=== PATIENT | male | born 1975 | race Caucasian/White ===

== ENCOUNTER 2023-11-19 01:18 | Emergency (ER) | payer SELFPAY ==
[2023-11-19 01:20] VITALS: BP 127/85; PULSE 72; RESP 16; TEMP 36.8; O2SAT 100; BMI 27.1
--- NOTE | 2023-11-19 01:31 | CT_ITS ---
PROCEDURE INFORMATION: Exam: CT Abdomen And Pelvis With Contrast Exam date and time: 11/19/2023 2:11 AM Age: 48 years old Clinical indication: Abdominal pain; Additional info: Chronic abd pain, weight loss, diarrhea TECHNIQUE: Imaging protocol: Computed tomography of the abdomen and pelvis with contrast. Radiation optimization: All CT scans at this facility use at least one of these dose optimization techniques: automated exposure control; mA and/or kV adjustment per patient size (includes targeted exams where dose is matched to clinical indication); or iterative reconstruction. Contrast material: ISOVUE; Contrast volume: 75 ml; Contrast route: IV; COMPARISON: ABDPELW CT abdomen pelvis w con 12/16/2017 10:20 PM FINDINGS: Liver: Mild fatty liver infiltration. No mass. Gallbladder and biliary ducts: Normal. No calcified stones. No ductal dilation. Pancreas: Normal. No ductal dilation. Spleen: Normal. No splenomegaly. Adrenal glands: Normal. No mass. Kidneys and ureters: 1.6 cm left upper pole simple cyst. Otherwise unremarkable kidneys. Stomach and bowel: Unremarkable. No obstruction. No mucosal thickening. Appendix: No evidence of appendicitis. Intraperitoneal space: Unremarkable. No free air. No significant fluid collection. Vasculature: Unremarkable. No abdominal aortic aneurysm. Lymph nodes: Unremarkable. No enlarged lymph nodes. Urinary bladder: Unremarkable as visualized. Reproductive: Unremarkable as visualized. Bones/joints: Unremarkable. No acute fracture. Soft tissues: Unremarkable. IMPRESSION: 1. No acute findings identified. 2. Mild fatty liver infiltration.
[2023-11-19] MEDS: KETOROLAC 30MG/ML VIAL 30 MG IV (01:38)
[2023-11-19] MEDS: ONDANSETRON 4MG/2ML VIAL 4 MG IV (01:38)
[2023-11-19] MEDS: ACETAMINOPHEN 500MG TAB 1000 MG PO (01:38)
[2023-11-19] MEDS: 0.9 % SODIUM CHLORIDE 1000ML 1,000 ML 999 ML IV (01:38)
[2023-11-19 01:51] LABS: Basophils # 0.1 K/mm3 (0-0.2); Basophils % 0.8 % (0.1-2.0); Chloride 106 mmol/L (98-107); Eosinophils # 0.1 K/mm3 (0.0-0.4); Eosinophils % 1.2 % (0.1-12.0); Hematocrit 49.5 % (42.0-52.0); Hemoglobin 15.8 g/dL (14.1-18.0); Lymphocytes % 27.6 % (10-50); Mean Corpuscular Hemoglobin 30.9 pg (27.0-31.2); Mean Corpuscular Volume 96.7 fl (80-94); Mean Platelet Volume 7.5 fl (7.4-10.4); Monocytes # 0.8 K/mm3 (0.1-1.0); Neutrophils % 63.4 % (37.0-80.0); Platelet Count 340 K/mm3 (142-424); Red Blood Count 5.12 M/mm3 (4.60-6.20); Red Cell Distribution Width 13.4 % (11.5-17.5); Sodium 139 mmol/L (136-145)
[2023-11-19 01:52] LABS: Potassium 4.4 mmoL/L (3.5-5.1)
[2023-11-19 01:54] LABS: Alanine Aminotransferase 35 U/L (12-78); Albumin/Globulin Ratio 1.5 (1.1-1.8); Alkaline Phosphatase 77 U/L (38-126); Anion Gap 10.4 mEq/L (5-15); Aspartate Amino Transferase 37 U/L (17-59); Bilirubin,Total 0.6 mg/dl (0.2-1.3); Blood Urea Nitrogen 19 mg/dl (9-20); Carbon Dioxide 27 mmol/L (22.0-30.0); Creatinine Clearance Estimated 144 mL/min (50-200); Estimated Glomerular Filt Rate 90 ml/min (>60); GFR (African American) 109 ML/MIN (>60); Globulin 3.3 g/dL (1.3-3.2); Total Protein,Serum 8.3 g/dl (6.3-8.2)
[2023-11-19 01:55] LABS: Calcium 9.9 mg/dl (8.4-10.2); Glucose 98 mg/dl (74-100); Lipase 87 U/L (23-300); Magnesium 2.1 mg/dl (1.6-2.3)
[2023-11-19 02:00] LABS: C-Reactive Protein 1.8 mg/L (0-4)
--- NOTE | 2023-11-19 02:10 | HMH.EDGENADL ---
Discharge Plan Disposition Patient Disposition: Home, Self-Care Prescriptions Prescriptions: New ondansetron HCl 4 mg tablet 4 mg PO Q8H PRN (Reason: nausea and vomiting) 5 Days Qty: 30 0RF No Action cyclobenzaprine 10 MG tablet 10 mg PO TID Qty: 4 0RF Referrals Follow up/Referrals: Gibran Elizondo MD [Primary Care Provider] - See instructions Activity Restrictions/Add. Instructions Additional Instructions/Restrictions: Recommend establishing care with a primary care provider. Please return to the emergency department if you develop any new or worsening symptoms or become concerned for your health. Clinical Impressions Clinical Impression: Abdominal pain, Diarrhea Instructions Patient Instructions: DI for Acute Abdominal Pain Print Language Print Language: Faroese Discharge ED Provider: Higinio Reid Adult HPI General Chief complaint: Abdominal Pain Stated complaint: abd pain, diarrhea, not eating, low energy Time Seen by Provider: 11/19/23 01:31 Mode of Arrival: Ambulatory Source of Information: Patient Limitations: No Limitations Description of Symptoms (Recalled from ER Triage Doc. by RN): Pt presents with ongoing abdominal pain associated with nausea and dark stools. Pt states does not go to a doctor and it's been going on for a really long time. Spouse states he has lost weight and it has been bad for the past 2-3 months. Pt has no known medical issues. History of Present Illness HPI narrative: 48-year-old male with no reported past medical history, does not see doctors presents with several months of chronic abdominal pain, diarrhea and weight loss. He reports that food goes right through him. He reports no blood in his stool. Denies any fevers. Reports nausea but no vomiting. He reports that he has been losing some weight as well. Related Data Previous Rx's ?Medication ?Instructions ?Recorded cyclobenzaprine 10 mg tablet 10 mg PO TID #4 tabs 11/18/18 ondansetron HCl 4 mg tablet 4 mg PO Q8H PRN nausea and 11/19/23 vomiting 5 days #30 tabs Allergies Allergy/AdvReac Type Severity Reaction Status Date / Time No Known Allergies Allergy Verified 12/16/17 21:45 [facility] Disclaimer: The information contained in this section may have been updated after the patient was seen, as this information can be updated by other users. Social History Smoking Status: Current every day smoker tobacco type: cigarettes packs per day: 1 second hand exposure: No alcohol intake: never current occupational status: employed Travel in the last 8 weeks: None household members: significant other housing: house current occupational exposures/hazards: No ROS Obtained: Yes All systems reviewed & no additional complaints except as documented Physical Exam General General appearance: alert and in no apparent distress Head Head exam: atraumatic and normocephalic Eye Eye exam: Present normal appearance, PERRL and EOMI ENT ENT exam: Present normal oropharynx and normal external ear exam Neck Neck exam: Present normal inspection and full ROM Chest Chest inspection: Present normal inspection and symmetric chest wall rise; Absent tenderness Respiratory Respiratory exam: Present normal lung sounds bilaterally; Absent respiratory distress Cardiovascular Cardiovascular exam: Present regular rate and normal rhythm Abdominal Exam Abdominal exam: Present soft; Absent distention, tenderness or guarding Extremities Exam Extremities exam: Present normal inspection; Absent edema or joint swelling Back Exam Back exam: Present normal inspection; Absent tenderness Neurological Exam Neurological exam: Present alert and oriented X3; Absent motor sensory deficit Psychiatric Psychiatric exam: Present normal affect and normal mood Skin Skin exam: Present warm, dry and normal color Lymphatic Lymphatic Findings: no adenopathy Medical Decision Making Medical Records Medical records reviewed: Yes I reviewed the patient's medical records. Eitan Inquiry Pt receiving controlled substance: No Eitan was queried for this patient: No Vital Signs: 11/19/23 01:20 Temperature 98.2 F Temperature Source Oral Pulse Rate [Left] 72 Respiratory Rate 16 Blood Pressure [Right Arm] 127/85 Blood Pressure Mean [Right Arm] 99 Blood Pressure Source [Right Arm] Automatic Cuff Blood Pressure Position [Right Arm] Sitting 02 Sat by Pulse Oximetry 100 Oxygen Delivery Method Room Air Lab Data Lab results reviewed: Yes I reviewed the patient's lab results. Lab Results 11/19/23 01:30: WBC 11.0 H, RBC 5.12, Hgb 15.8, Hct 49.5, MCV 96.7 H, MCH 30.9, MCHC 32.0, RDW 13.4, Plt Count 340, MPV 7.5, Neut % (Auto) 63.4, Lymph % (Auto) 27.6, [place] % (Auto) 7.0, Eos % (Auto) 1.2, Baso % (Auto) 0.8, Neut # (Auto) 7.0, Lymph # (Auto) 3.0, [place] # (Auto) 0.8, Eos # (Auto) 0.1, Baso # (Auto) 0.1, ESR 5, Sodium 139, Potassium 4.4, Chloride 106, Carbon Dioxide 27, Anion Gap 10.4, BUN 19, Creatinine 0.90, Estimated Creat Clear 144, Estimated GFR 90, Est GFR ( Amer) 109, Glucose 98, Calcium 9.9, Magnesium 2.1, Total Bilirubin 0.6, AST 37, ALT 35, Alkaline Phosphatase 77, C-Reactive Protein 1.8, Total Protein 8.3 H, Albumin 5.0, Globulin 3.3 H, Albumin/Globulin Ratio 1.5, Lipase 87 11/19/23 01:30 11/19/23 01:30 Orders (Tests/Meds): ED MEDICATIONS Generic Name Dose Route Start Last Admin Trade Name Freq PRN Reason Stop Dose Admin Sodium Chloride 10 ml 11/19/23 02:25 11/19/23 02:26 Sodium Chloride 0.9% 10ml Syr (Rad Only) IV 12/19/23 02:24 10 ml NEEDED PRN Administration Maintain IV Site Discontinued Medications Generic Name Dose Route Start Last Admin Trade Name Freq PRN Reason Stop Dose Admin Acetaminophen 1,000 mg 11/19/23 01:31 11/19/23 01:38 Acetaminophen 500mg Tab PO 11/19/23 01:32 1,000 mg ONCE ONE Administration Sodium Chloride 1,000 mls @ 999 mls/hr 11/19/23 01:45 11/19/23 01:38 Sod Chlor 0.9% 1000ml Bag IV 11/19/23 02:45 999 mls/hr .Q1H1M QUINCY Administration Iopamidol 75 ml 11/19/23 02:25 11/19/23 02:26 Iopamidol-370 (76%);100ml Bottle IV 11/19/23 02:26 75 ml ONCE ONE Administration Ketorolac Tromethamine 30 mg 11/19/23 01:31 11/19/23 01:38 Ketorolac 30mg/Ml Vial IV 11/19/23 01:32 30 mg ONCE ONE Administration Ondansetron HCl 4 mg 11/19/23 01:31 11/19/23 01:38 Ondansetron 4mg/2ml Vial IV 11/19/23 01:32 4 mg ONCE ONE Administration ORDERS Category Date Time Status CT abdomen pelvis w con Stat Cat Scan 11/19/23 01:31 Completed CBC w/Auto Diff [Complete Blood Count Auto Diff] Stat Lab 11/19/23 01:30 Completed CMP [Comprehensive Metabolic Panel] Stat Lab 11/19/23 01:30 Completed CRP [C-Reactive Protein] Stat Lab 11/19/23 01:30 Completed Diarrhea 23 Panel, PCR Stat Lab 11/19/23 01:32 Ordered ESR [Erythrocyte Sedimentation Rate] Stat Lab 11/19/23 01:30 Completed Lipase Stat Lab 11/19/23 01:30 Completed Magnesium Stat Lab 11/19/23 01:30 Completed Medical Decision Narrative: 48-year-old male with no reported past medical history, does not see doctors presents with 2 to 3 months of chronic abdominal pain, nausea, diarrhea, weight loss. History was obtained via interactive discussion with patient, family, chart review. On arrival, patient is [afebrile, hemodynamically stable, satting appropriately, alert, oriented x4, GCS 15], moving all extremities spontaneously. Full physical exam performed and significant for no significant physical exam abnormalities. Differential includes but is not limited to malignancy, pancreatitis, bacterial/viral gastroenteritis, functional abdominal pain, celiac, IBS, IBD. Patient was given 1 L IV fluid bolus, Tylenol, Toradol, Zofran for symptomatic management and correction of underlying abnormalities. Workup initiated including CBC CMP ESR CRP diarrhea panel CT abdomen pelvis IV contrast mag lipase. On re-evaluation, patient [remains afebrile, HD stable.] Reports symptomatic improvement Laboratory workup independently interpreted by me and significant for minimal leukocytosis, otherwise benign labs with negative lipase, no elevation in inflammatory markers, normal electrolytes. Imaging independently interpreted by me and significant for no evidence of malignancy obstruction or other abnormalities. See radiology read for full review of final results. Interactive discussion was had with patient regarding his presentation and workup. His symptoms may represent celiac, IBS IBD or some other GI pathology. He was encouraged to establish care with PCP for further workup. I also discussed with him the benefits of an elimination diet to see if perhaps dairy or gluten or some other food stuff was contributing to his symptoms. Patient was discharged with prescription for Zofran. He was given an outpatient order form for a diarrhea panel as he was unable to provide us with a sample in the ER. Procedures Risk/Benefits of Procedure(s) Were Explained: Yes Critical Care Critical Care Time Critical Care Time: No
[2023-11-19 02:17] LABS: Erythrocyte Sedimentation Rate 5 mm/hr (0-15)
[2023-11-19] MEDS: IOPAMIDOL-370 (76%);100ML BOTTLE 75 ML IV (02:26)
[2023-11-19] MEDS: SODIUM CHLORIDE 0.9% 10ML SYR (RAD ONLY) 10 ML IV (02:26)
[2023-11-19 03:04] VITALS: BP 119/82; PULSE 59; RESP 18; TEMP 36.8; O2SAT 98
== END 2023-11-19 03:07 | disposition home or self-care (01) ==
PROVIDERS: Emergency Provider Emergency Medicine; PCP Family Medicine
DX: R10.9 Unspecified abdominal pain (principal); R19.7 Diarrhea, unspecified; R63.4 Abnormal weight loss; G89.29 Other chronic pain; R11.0 Nausea; F17.210 Nicotine dependence, cigarettes, uncomplicated
CPT/HCPCS: 74177; 80053; 83690; 83735; 85025; 85651; 86140; 96361; 96374; 96375; 99285; J1885; J2405; J7030; Q9967

== ENCOUNTER 2023-11-22 22:56 | Emergency (ER) | payer SELFPAY ==
[2023-11-22 23:08] VITALS: BP 129/100; PULSE 126; RESP 16; TEMP 36.8; O2SAT 98; BMI 23.1
[2023-11-22] MEDS: LACTATED RINGERS 1000ML 1,000 ML 999 ML IV (23:19)
[2023-11-22] MEDS: KETOROLAC 30MG/ML VIAL 15 MG IV (23:19)
[2023-11-22] MEDS: DICYCLOMINE 10MG CAPSULE 20 MG PO (23:20)
[2023-11-22] MEDS: ONDANSETRON 4MG ODT 4 MG SL (23:20)
[2023-11-22 23:37] LABS: Adenovirus F 40/41, stool Not Detected (NotDetected); Astrovirus Not Detected (NotDetected); Campylobacter Not Detected (NotDetected); Clostridium Difficile A/B, PCR Not Detected (NotDetected); Cryptosporidium Not Detected (NotDetected); Cyclospora Cayetanesis Not Detected (NotDetected); Entamoeba histolytica Not Detected (NotDetected); Enteroaggregative E coli Not Detected (NotDetected); Enteropathogenic E coli Not Detected (NotDetected); Enterotoxigenic E coli Not Detected (NotDetected); Giardia lamblia Not Detected (NotDetected); Norovirus Not Detected (NotDetected); Plesimonas Shigalloides, PCR Not Detected (NotDetected); Rotavirus A Not Detected (NotDetected); Salmonella, PCR Not Detected (NotDetected); Sapovirus Not Detected (NotDetected); Shiga-like toxin E coli Not Detected (NotDetected); Shigella Enterovasive E coli Not Detected (NotDetected); Vibrio Cholerae Not Detected (NotDetected); Vibrio, PCR Not Detected (NotDetected); Yersinia Entercolitica, PCR Not Detected (NotDetected)
[2023-11-22 23:38] LABS: Albumin Level 4.7 g/dl (3.5-5.0); Chloride 107 mmol/L (98-107); Sodium 137 mmol/L (136-145)
[2023-11-22 23:40] LABS: Basophils # 0.1 K/mm3 (0-0.2); Basophils % 0.7 % (0.1-2.0); Eosinophils # 0.1 K/mm3 (0.0-0.4); Eosinophils % 1.1 % (0.1-12.0); Hematocrit 49.7 % (42.0-52.0); Lymphocytes % 18.5 % (10-50); Mean Corpuscular HGB Conc 32.2 g/dL (31.8-35.4); Mean Corpuscular Hemoglobin 31.1 pg (27.0-31.2); Mean Corpuscular Volume 96.7 fl (80-94); Mean Platelet Volume 7.5 fl (7.4-10.4); Monocytes # 0.8 K/mm3 (0.1-1.0); Monocytes % 7.6 % (1.7-9.3); Neutrophils # 7.6 K/mm3 (1.8-7.8); Neutrophils % 72.2 % (37.0-80.0); Platelet Count 309 K/mm3 (142-424); Red Blood Count 5.14 M/mm3 (4.60-6.20); Red Cell Distribution Width 13.3 % (11.5-17.5); White Blood Count 10.5 K/mm3 (4.8-10.8)
[2023-11-22 23:41] LABS: Alanine Aminotransferase 36 U/L (12-78); Albumin/Globulin Ratio 1.5 (1.1-1.8); Alkaline Phosphatase 65 U/L (38-126); Aspartate Amino Transferase 34 U/L (17-59); Bilirubin,Total 0.6 mg/dl (0.2-1.3); Blood Urea Nitrogen 18 mg/dl (9-20); Calcium 9.4 mg/dl (8.4-10.2); Carbon Dioxide 26 mmol/L (22.0-30.0); Creatinine Clearance Estimated 134 mL/min (50-200); Estimated Glomerular Filt Rate 103 ml/min (>60); GFR (African American) 125 ML/MIN (>60); Globulin 3.2 g/dL (1.3-3.2); Glucose 131 mg/dl (74-100); Total Protein,Serum 7.9 g/dl (6.3-8.2)
--- NOTE | 2023-11-22 23:42 | HMH.EDGENADL ---
Discharge Plan Disposition Patient Disposition: Home, Self-Care Condition: Good Prescriptions Prescriptions: New dicyclomine 10 mg capsule 10 mg PO BID PRN (Reason: abdominal cramping) Qty: 10 0RF No Action cyclobenzaprine 10 MG tablet 10 mg PO TID Qty: 4 0RF ondansetron HCl 4 mg tablet 4 mg PO Q8H PRN (Reason: nausea and vomiting) 5 Days Qty: 30 0RF Referrals Follow up/Referrals: Rhett Noriega MD [Physician] - See instructions (Months of persistent diarrhea, reassuring ED workups) Gibran Elizondo MD [Primary Care Provider] - See instructions Activity Restrictions/Add. Instructions Additional Instructions/Restrictions: You were evaluated in the ER and are appropriate for discharge at this time. Call the GI office and make an appointment with them to be evaluated for other possible intestinal problems. central supply manager the prescription for ondansetron that was recently prescribed to you. This helps with nausea. Also parts picker and take the prescribed dicyclomine if needed for abdominal cramping. Drink plenty of water. Follow-up with your primary care doctor in a few days. Return to the ER with new, worsening, or otherwise concerning symptoms. Clinical Impressions Clinical Impression: Abdominal cramping, Nausea, vomiting, and diarrhea Instructions Patient Instructions: DI for Diarrhea and Traveler's Diarrhea -- Adult, DI for Diarrhea and Traveler's Diarrhea -- Child, DI for Nausea -- Adult, DI for Nausea -- Child Print Language Print Language: Faroese Discharge ED Provider: Karla Bowden Adult HPI General Chief complaint: Nausea/Vomiting/Diarrhea Stated complaint: abd pain V/D Time Seen by Provider: 11/22/23 23:00 Mode of Arrival: Family Vehicle Source of Information: Patient Limitations: No Limitations Description of Symptoms (Recalled from ER Triage Doc. by RN): 48 yo male presents with continue n/v/d. was recently unable to provide a stool sample when he was in here before. History of Present Illness HPI narrative: 48-year-old male presents to the ER with similar complaints to those he had 3 days ago when he presented with abdominal pain, nausea, vomiting, diarrhea. Patient reports he was unable to provide a stool sample when he was here previously but was discharged. He states at that time he had not had vomiting, but in the last 24 hours started having nonbloody, nonbilious emesis. Patient reports continuing to have multiple liquid bowel movements per day. He states Pepto is the only thing that helps relieve the cramping, his diarrhea is dark in color but not tarry. He denies fevers, chest pain, shortness of breath. Patient reports the diarrhea problem has been ongoing for multiple months. He states he has not followed up with his primary care doctor, GI, or picked up the Zofran that was prescribed at his previous visit 3 days ago. He has diffuse lower abdominal pain that he describes as cramping. No radiation. ROS otherwise negative. Patient states his symptoms are stable and unchanged from his visit 3 days ago aside from a few episodes of vomiting today. Related Data Previous Rx's ?Medication ?Instructions ?Recorded cyclobenzaprine 10 mg tablet 10 mg PO TID #4 tabs 11/18/18 ondansetron HCl 4 mg tablet 4 mg PO Q8H PRN nausea and 11/19/23 vomiting 5 days #30 tabs dicyclomine 10 mg capsule 10 mg PO BID PRN abdominal 11/23/23 cramping #10 caps Allergies Allergy/AdvReac Type Severity Reaction Status Date / Time No Known Allergies Allergy Verified 12/16/17 21:45 [facility] Disclaimer: The information contained in this section may have been updated after the patient was seen, as this information can be updated by other users. Social History Smoking Status: Unknown if ever smoked second hand exposure: No alcohol intake: never current occupational status: employed Travel in the last 8 weeks: None household members: significant other housing: house current occupational exposures/hazards: No ROS Obtained: Yes All systems reviewed & no additional complaints except as documented Positive ROS per HPI Physical Exam General General appearance: alert and in no apparent distress Head Head exam: atraumatic and normocephalic Eye Eye exam: Present PERRL and EOMI ENT ENT exam: Present mucous membranes moist Neck Neck exam: Present normal inspection and full ROM Chest Chest inspection: Present symmetric chest wall rise Respiratory Respiratory exam: Present normal lung sounds bilaterally; Absent respiratory distress, wheezes or stridor Cardiovascular Cardiovascular exam: Present regular rate (Tachycardia present on arrival was absent on exam) and normal rhythm Abdominal Exam Abdominal exam: Present soft, tenderness (Mild to moderate diffuse lower abdominal tenderness) and normal bowel sounds; Absent distention, guarding, rebound or rigidity Extremities Exam Extremities exam: Present full ROM; Absent edema Neurological Exam Neurological exam: Present alert and oriented X3; Absent motor sensory deficit Psychiatric Psychiatric exam: Present normal affect and normal mood Skin Skin exam: Present warm and dry Medical Decision Making Medical Records Medical records reviewed: Yes I reviewed the patient's medical records. MR Comment: ER visit from 11/19/2023 was reviewed, personally reviewed CT imaging radiology read which did not demonstrate acute intra-abdominal pathology. Labs at that time were unremarkable, nonactionable Eitan Inquiry Pt receiving controlled substance: No Vital Signs: 11/22/23 23:08 11/23/23 00:31 11/23/23 02:23 Temperature 98.3 F 98.1 F Temperature Source Oral Oral Pulse Rate 53 L 78 Pulse Rate [Right Brachial] 126 H Respiratory Rate 16 18 Blood Pressure 142/111 H 154/89 H Blood Pressure [Right Arm] 129/100 H Blood Pressure Mean [Right Arm] 109 02 Sat by Pulse Oximetry 98 98 Oxygen Delivery Method Room Air Room Air Lab Data Lab Results 11/22/23 23:07: SARS-CoV-2 (PCR) Not detected, Influenza A Untype (PCR) Not detected, Influenza Type B (PCR) Not detected 11/22/23 23:10: WBC 10.5, RBC 5.14, Hgb 16.0, Hct 49.7, MCV 96.7 H, MCH 31.1, MCHC 32.2, RDW 13.3, Plt Count 309, MPV 7.5, Neut % (Auto) 72.2, Lymph % (Auto) 18.5, [place] % (Auto) 7.6, Eos % (Auto) 1.1, Baso % (Auto) 0.7, Neut # (Auto) 7.6, Lymph # (Auto) 2.0, [place] # (Auto) 0.8, Eos # (Auto) 0.1, Baso # (Auto) 0.1, PT 11.1, INR 0.99, Sodium 137, Potassium 4.0, Chloride 107, Carbon Dioxide 26, Anion Gap 8.0, BUN 18, Creatinine 0.80, Estimated Creat Clear 134, Estimated GFR 103, Est GFR ( Amer) 125, Glucose 131 H, Calcium 9.4, Total Bilirubin 0.6, AST 34, ALT 36, Alkaline Phosphatase 65, Total Protein 7.9, Albumin 4.7, Globulin 3.2, Albumin/Globulin Ratio 1.5 11/22/23 23:33: Stool Occult Blood Negative, Stl Aeromonas (PCR) Not detected, Stl C. cayetanensis PCR Not detected, Stool Rotavirus (PCR) Not detected, Stl Adenov F 40/41 PCR Not detected, Stool Astrovirus (PCR) Not detected, Stool Campylobacter PCR Not detected, Stl C.difficile Tox PCR Not detected, Stool Cryptosporidium PCR Not detected, Stl E.coli Shiga Tox PCR Not detected, Stool E coli O157 PCR Not detected, Stl Enterotoxigenic E PCR Not detected, Stool EPEC (PCR) Not detected, Stool EAEC (PCR) Not detected, Stl E. histolytica PCR Not detected, Stool Giardia Lamblia PCR Not detected, Stool Salmonella PCR Not detected, Stool Sapovirus (PCR) Not detected, Stl P. shigelloides PCR Not detected, Stl Shigella/EIEC PCR Not detected, St Y.enterocolitica PCR Not detected, Stool Vibrio (PCR) Not detected, Stl Vibrio cholerae PCR Not detected, Stl Norovirus GI/GII PCR Not detected 11/22/23 23:10 11/22/23 23:10 Orders (Tests/Meds): ED MEDICATIONS Discontinued Medications Generic Name Dose Route Start Last Admin Trade Name Freq PRN Reason Stop Dose Admin Dicyclomine HCl 20 mg 11/22/23 23:11 11/22/23 23:20 Dicyclomine 10mg Capsule PO 11/22/23 23:12 20 mg ONCE ONE Administration Lactated Ringer's 1,000 mls @ 999 mls/hr 11/22/23 23:11 11/22/23 23:19 Lactated Ringer's 1000 Ml Bag IV 11/23/23 00:11 999 mls/hr .Q1H1M ONE Administration Ketorolac Tromethamine 15 mg 11/22/23 23:11 11/22/23 23:19 Ketorolac 30mg/Ml Vial IV 11/22/23 23:12 15 mg ONCE ONE Administration Ondansetron HCl 4 mg 11/22/23 23:11 11/22/23 23:20 Ondansetron 4mg Odt SL 11/22/23 23:12 4 mg ONCE ONE Administration ORDERS Category Date Time Status CBC w/Auto Diff [Complete Blood Count Auto Diff] Stat Lab 11/22/23 23:10 Completed CMP [Comprehensive Metabolic Panel] Stat Lab 11/22/23 23:10 Completed Diarrhea 23 Panel, PCR Stat Lab 11/22/23 23:33 Completed Occult Blood,Stool Stat Lab 11/22/23 23:33 Completed PT INR [Prothrombin Time INR] Stat Lab 11/22/23 23:10 Completed Rapid PCR Covid and Flu A/B Stat Lab 11/22/23 23:07 Completed Medical Decision Narrative: In summary, this 48-year-old male who is otherwise healthy presents to the emergency department today with diarrhea, diffuse lower abdominal pain, nausea, vomiting. On initial evaluation patient is hemodynamically stable, afebrile, mild diffuse abdominal tenderness without rebound or guarding, nonacute abdomen, no localization of pain. Differential diagnosis includes but is not limited to infectious diarrhea, IBS, celiac, Crohn's, electrolyte abnormality, dehydration, kidney dysfunction, I had considered acute intra-abdominal pathology such as appendicitis however given patient's long duration of symptoms I have lower suspicion for this and since patient is reporting symptoms stable from his visit 3 days ago I do not believe he requires new abdominal imaging today since his previous imaging was reassuring. Based on these concerns, I ordered serum labs, diarrhea panel, COVID swab. Patient received IV fluids, Bentyl, Toradol, ondansetron for treatment. Labs personally reviewed demonstrate no leukocytosis or anemia, platelets normal, PT/INR normal, CMP nonactionable, no findings of kidney or liver dysfunction, no electrolyte abnormalities, COVID and flu test negative. Stool submitted to lab was semiformed. Diarrhea panel negative for all analytes. On reassessment patient has had improvement of symptoms. He is tolerating oral intake. I have low suspicion for acute pathology at this time given reassuring labs And reassuring imaging a few days ago with improvement of symptoms after conservative management. He is appropriate for discharge at this time. I discussed the possibility of Crohn's, celiac, IBS, or other intestinal disorder causing his symptoms since they have been protracted for multiple months. I gave him referral to GI, prescription for Bentyl, instructed him to parts picker the previously prescribed ondansetron, follow-up instructions for his primary care doctor, and strict return precautions for the ER. Patient and family indicated understanding and patient was discharged in stable condition. Critical Care Critical Care Time Critical Care Time: No
[2023-11-22 23:46] LABS: INR 0.99 (0.9-1.1); Prothrombin Time 11.1 seconds (10.1-12.5)
[2023-11-22 23:51] LABS: Coronavirus 19, PCR Not Detected (NotDetected); Influenza A, PCR Not Detected (NotDetected); Influenza B, PCR Not Detected (NotDetected)
[2023-11-23 00:31] VITALS: BP 142/111; PULSE 53; O2SAT 98
[2023-11-23 02:11] LABS: Occult Blood,Stool Negative (Negative)
[2023-11-23 02:23] VITALS: BP 154/89; PULSE 78; RESP 18; TEMP 36.7; O2SAT 98
== END 2023-11-23 02:38 | disposition home or self-care (01) ==
PROVIDERS: Emergency Provider Emergency Medicine; PCP Family Medicine
DX: R10.30 Lower abdominal pain, unspecified (principal); R25.2 Cramp and spasm; R11.2 Nausea with vomiting, unspecified; R19.7 Diarrhea, unspecified
CPT/HCPCS: 80053; 82272; 85025; 85610; 87507; 87636; 96361; 96374; 99284; G0328; J1885; J7120; Q0162

== ENCOUNTER 2023-12-29 08:09 | Outpatient (CLI) | payer BC, SELFPAY ==
--- NOTE | 2023-12-29 08:14 | US_ITS ---
FINAL REPORT CLINICAL HISTORY: Abdominal Pain FINDINGS: RIGHT UPPER QUADRANT ULTRASOUND Sonographic images of the right upper quadrant were obtained. The pancreas is partially obscured. There is fatty infiltration of the liver. The gallbladder appears normal without evidence of gallstones.The common duct is normal. Limited images of the right kidney are normal. IMPRESSION: Fatty liver. Reviewed, Interpreted and Dictated by Jakob Villar MD Transcribed by Juana Escalante Authenticated and . [facility]
== END 2023-12-29 23:59 | disposition home or self-care (01) ==
LOC: RAD 08:10
PROVIDERS: PCP Family Medicine; Visit Provider Family Medicine
DX: R10.9 Unspecified abdominal pain (principal)
CPT/HCPCS: 76705

== ENCOUNTER 2024-01-05 09:47 | Outpatient (CLI) | payer BC, SELFPAY ==
--- NOTE | 2024-01-05 09:52 | NM_ITS ---
FINAL REPORT TECHNIQUE: 0.51 mCi technetium 99m sulfur colloid were administered in a standard meal. CLINICAL HISTORY: nausea, RUQ pain FINDINGS: On the grayscale images, there is progressive clearance of activity into the proximal small bowel. The T1 half emptying time is 63 minutes. This finding is within normal limits. IMPRESSION: 1. Normal gastric emptying study. Authenticated and ERN
[2024-01-05] MEDS: TC99M SULF.COLLOID;1 DOSE (UP TO 20 MCI) IV (10:18)
== END 2024-01-05 23:59 | disposition home or self-care (01) ==
LOC: RAD 09:48
PROVIDERS: PCP Family Medicine; Visit Provider Family Medicine
DX: R10.11 Right upper quadrant pain (principal); R11.0 Nausea
CPT/HCPCS: 78264; A9541

== ENCOUNTER 2024-02-01 06:42 | Day surgery (SDC) | payer BC, SELFPAY ==
[2024-01-28 14:51] VITALS: BMI 28.5
[2024-02-01 06:54] VITALS: BP 118/71; PULSE 75; RESP 18; TEMP 36.3; O2SAT 99
[2024-02-01] MEDS: LACTATED RINGERS 1000ML 1,000 ML 25 ML IV (07:10)
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
--- NOTE | 2024-02-01 07:59 | P.PCN_ITS ---
[facility] Procedure Note Date: 02/01/24 Time: 08:05 Procedure Note:: Upper Endoscopy Procedure Report: Esophagogastroduodenoscopy with cold biopsies Endoscopost: David Boateng II, MD Referring Physician: Gibran Elizondo MD Date of Procedure: February 01, 2024 Equipment: Olympus GIF 190 standard upper endoscope Sedation: MAC sedation Indications: Mr. Senior is a 48-year-old gentleman with chronic digestive difficulties who is here for diagnostic panendoscopy. He had gone to the emergency department 4 times in the last few months with nausea, vomiting, lower abdominal pain and diarrhea. He had a negative CAT scan that showed only obstipation/increased fecal burden and mild fatty liver disease. His ultrasound had shown some fatty liver disease. He has had chronic constipation since childhood. He can go up to 4 to 5 days without a bowel movement. He did improve some with MiraLAX but cannot tolerate psyllium/Metamucil. He does report occasional early satiety and occasional heartburn. He has had some weight loss. He reports no nausea or melena. He has had no fever. He does have intermittent reverting to diarrhea. His celiac panel was negative. He has never had EGD or colonoscopy. Procedure: Prior to the procedure, a history and physical exam was performed, and patient's medications and allergies were reviewed. The risks, benefits and alternatives of the sedation and procedure were discussed with the patient. All questions were answered and informed consent was obtained. The patient was brought to the procedure room. Patient identification and proposed procedure were verified by the physician and the nurse. The patient was placed in a left lateral decubitus position and the scope was passed under direct vision. Throughout the procedure, the patient's blood pressure, pulse, and oxygen saturations were monitored continuously. The upper GI endoscopy was accomplished without difficulty. The patient tolerated the procedure well. Findings: The scope was passed directly into the upper esophagus and advanced to the third portion of the duodenum. The post bulbar duodenum and duodenal bulb were normal with normal mucosa and conniventes. The ampulla was normal and there was no scalloping of the conniventes. The scope was withdrawn through a n ormal duodenal bulb and pylorus into the stomach. There was mild bile reflux with mild reactive gastropathy of the antrum. There was some mild chronic gastritis of the body and fundus. Biopsies were taken from the lesser and greater curvature and body of the stomach to rule out H. pylori. Upon retroflexion there was no hiatal hernia. The scope was then withdrawn into the esophagus. There was a least 1 very small subcentimeter linear erosion consistent with grade A reflux esophagitis. There was no evidence of Sanderson's esophagus. There were tertiary contractions and mild dysmotility. The remainder of the esophageal mucosa was normal. Impression: 1. Grade A reflux esophagitis with mild esophageal dysmotility 2. Mild chronic gastritis Plan: I will follow-up the biopsies to rule out H. pylori. I will proceed with diagnostic colonoscopy. I do feel that most of his dyspepsia and abdominal pain is related to his obstipation. He is doing better with MiraLAX. I would consider treatment for visceral sensitivity/functional abdominal pain syndrome.
[2024-02-01 08:00] VITALS: O2SAT 100
--- NOTE | 2024-02-01 08:08 | P.PCN_ITS ---
[facility] Procedure Note Date: 02/01/24 Time: 08:23 Procedure Note:: Colonoscopy Procedure Report: Colonoscopy with cold snare polypectomy Endoscopist: David Boateng II, MD Referring physician: Gibran Elizondo MD Date of Procedure: February 01, 2024 Equipment: Olympus 190 variable stiffness pediatric colonoscope Sedation: MAC sedation Indication: Mr. Senior is a 48-year-old gentleman with chronic digestive difficulties who is here for diagnostic panendoscopy. He had gone to the emergency department 4 times in the last few months with nausea, vomiting, lower abdominal pain and diarrhea. He had a negative CAT scan that showed only obstipation/increased fecal burden and mild fatty liver disease. His ultrasound had shown some fatty liver disease. He has had chronic constipation since childhood. He can go up to 4 to 5 days without a bowel movement. He did improve some with MiraLAX but cannot tolerate psyllium/Metamucil. He does report occasional early satiety and occasional heartburn. He has had some weight loss. He reports no nausea or melena. He has had no fever. He does have intermittent reverting to diarrhea. His celiac panel was negative. He has never had EGD or colonoscopy. Procedure: Prior to the procedure, a history and physical exam was performed, and patient's medications and allergies were reviewed. The risks, benefits and alternatives of the sedation and procedure were discussed with the patient. All questions were answered and informed consent was obtained. The patient was brought to the procedure room. Patient identification and proposed procedure were verified by the physician and the nurse. The patient was placed in a left lateral decubitus position and the scope was passed under direct vision. Throughout the procedure, the patient's blood pressure, pulse, and oxygen saturations were monitored continuously. The colonoscopy was accomplished without difficulty. The patient tolerated the procedure well. Findings: On digital rectal examination there was normal rectal tone. There were no external hemorrhoids. The prostate was 2+, smooth, soft, symmetric without nodules. The colonoscope was introduced through the anal canal to the rectum and advanced to the cecum. The ileocecal valve and appendiceal orifice were identified. The scope was advanced a short distance into the ileum which appeared grossly normal. The scope was then withdrawn into the colon. The cecum, ascending, transverse, descending and sigmoid colon were grossly normal. There was a single 4 to 5 mm polyp at the rectosigmoid junction removed via cold snare polypectomy. This appeared to be hyperplastic. There were no other mucosal abnormalities identified. The rectum itself was normal. Upon retroflexion within the rectum there were grade 1-2 internal hemorrhoids.The preparation was excellent throughout with [place] Preparation Score of 9. The cecal time was 10 minutes. Impression: 1. Diminutive hyperplastic appearing rectosigmoid polyp 2. Grade 1-2 internal hemorrhoids Plan: I will follow-up the polyp histology and recommend repeat surveillance colonoscopy again in 10 years if the polyp is hyperplastic. I would continue MiraLAX and possibly addition of Citrucel. We will discuss treatment options for his functional abdominal pain/visceral sensitivity. Visceral sensitivity is widely regarded as the reason for the development of functional gastrointestinal diseases, including functional dyspepsia and irritable bowel syndrome. Visceral sensitivity is the heightened sensation of pain and discomfort in the abdominal and internal organs (i.e. viscera). It appears likely that the visceral sensitivity seen in some dyspepsia and IBS patients is a result of changes in nervous system functioning on both the level of the intestines and the brain. At the level of the gut, it seems as if nerve pathways in the gastrointestinal tract become sensitized to stimulation, resulting in over-reactivity and resulting in pain amplification. As for the brain, brain imaging studies provide even more clues: In comparing healthy individuals with dyspepsia/IBS patients, there are significant differences in the parts of the brain that are activated in response to pain. In individuals who do not have dyspepsia and IBS, esophageal and/or rectal distension triggers a response in parts of the brain that are associated with modulating pain. In dyspeptic or IBS patients, this same esophageal or rectal stimulation triggers a response in the parts of the brain associated with vigilance and anxiety -- parts of the brain that serve to amplify the sensation of pain.
[2024-02-01 08:26] VITALS: BP 102/63; PULSE 75; RESP 16; TEMP 36.1; O2SAT 96
[2024-02-01 08:36] VITALS: BP 107/66; PULSE 68; RESP 16; O2SAT 99
[2024-02-01 08:46] VITALS: BP 121/70; PULSE 67; RESP 16; O2SAT 99
[2024-02-01 08:56] VITALS: BP 106/67; PULSE 73; RESP 18; O2SAT 99
== END 2024-02-01 09:00 | disposition home or self-care (01) ==
PROVIDERS: PCP Family Medicine; Visit Provider Internal Medicine Gastroenterology
PROC: 0DJ08ZZ Inspection of Upper Intestinal Tract, Via Natural or Artificial Opening Endoscopic (ICD-10-PCS; CPT 43235; principal; 2024-02-01 08:00)
DX: R10.84 Generalized abdominal pain (principal); R11.2 Nausea with vomiting, unspecified; R14.0 Abdominal distension (gaseous); R19.7 Diarrhea, unspecified; R10.30 Lower abdominal pain, unspecified; R10.9 Unspecified abdominal pain; K22.4 Dyskinesia of esophagus; K20.90 Esophagitis, unspecified without bleeding; K29.50 Unspecified chronic gastritis without bleeding; K64.8 Other hemorrhoids; K63.5 Polyp of colon
CPT/HCPCS: 43239; 45385; J2704; J7120